=== PATIENT | male | born 1950 | race Caucasian/White ===

== ENCOUNTER 2020-08-07 08:06 | Observation (INO) | payer OTHER, SELFPAY ==
[2020-08-07] VITALS (37 sets, daily range): BP systolic 65–137; BP diastolic 41–76; PULSE 53–78; RESP 11–24; TEMP 36.4–36.9; O2SAT 92–99; BMI 28.8
--- NOTE | 2020-08-07 08:20 | DI.RAD.S_ITS ---
PROCEDURE: XR CHEST 1V INDICATIONS: chest pain TECHNIQUE: One view of the chest was acquired. COMPARISON: [facility], CR, XR CHEST 2VW, 01/28/2017, 17:48. FINDINGS: Surgical changes and devices: None. Lungs and pleura: Left lower lobe infiltrates suspicious for pneumonia. No pleural effusions or pneumothorax. Mediastinum: Mediastinal contours appear normal. Heart size is normal. Bones and chest wall: No suspicious bony lesions. Overlying soft tissues appear unremarkable. IMPRESSION: Left lower lobe pneumonia. Dictated by: Sarah Trevino M.D. on 08/07/2020 at 8:42 Approved by: Sarah Trevino M.D. on 08/07/2020 at 8:43
[2020-08-07 08:35] LABS: Add Manual Diff / Slide Review NO; Basophils Absolute Auto 100 /uL (0-100); Basophils Percent Auto 0.8 % (0-2); Eosinophils Absolute Auto 100 /uL (0-450); Eosinophils Percent Auto 0.8 % (2-4); Hematocrit 44.2 % (41-53); Hemoglobin 14.8 g/dL (13.5-17.5); Lymphocytes Absolute Auto 1600 /uL (1100-4500); Lymphocytes Percent Auto 18.6 % (25-40); Mean Corpuscular HGB Conc 33.5 % (30-36); Mean Corpuscular Volume 86.8 fL (80-100); Monocytes Absolute Auto 1100 /uL (0-900); Neutrophils Absolute Auto 5700 /uL (1500-7000); Neutrophils Percent Auto 66.8 % (50-75); Platelet Count 233 X10^3/uL (150-400); Red Blood Cell Count 5.09 X10^6/uL (4.5-5.9); Red Cell Distribution Width 13.5 % (11.6-14.8); White Blood Cell Count 8.6 X10^3/uL (4.5-11.0)
--- NOTE | 2020-08-07 08:39 | ED.GENADULT ---
HPI - General Adult General Chief complaint: Chest Pain Stated complaint: AFIB/ heart rate reached 170 Time Seen by Provider: 08/07/20 08:08 Source: patient Mode of arrival: Ambulatory Limitations: no limitations History of Present Illness HPI narrative: Patient is a 70-year-old male who at the end of last year around [place] time had an ER visit where he was told that he was in atrial fibrillation. He was given medications in sounds like converted in the emergency department because he was discharged home. He was not started on any medication. Since that time he has seen his primary doctor who started him on a ?blood pressure medicine ?that he also noticed decreased his heart rate. He does not know with this medication is. He has has scheduled appointment with a ldr nurse at the end of this week. He comes to the emergency department today because earlier today he started noticing that his heart rate was beating fast. He was a little lightheaded at the time. He has a home heart rate monitor and states that his heart rate was in the 170s. It had resolved by the time he came to the emergency department. After his heart rate is fast he is noticing that he is having some discomfort afterwards however that has also resolved. He came to the emergency department today and recommendation by his coworkers and also the fact that he has been having chest discomfort after having the fast heart rate. Related Data Home Medications Medication Instructions Recorded Confirmed Aspirin Low Dose 81 mg PO DAILY 08/07/20 08/07/20 diltiazem HCl 120 mg PO DAILY 08/07/20 08/07/20 Review of Systems Constitutional Constitutional: Denies chills and Denies fever(s) Cardiovascular Cardiovascular: Reports chest pain, Reports rapid heart rate, Reports lightheadedness and Denies dyspnea Respiratory Respiratory: Denies cough and Denies dyspnea Gastrointestinal Gastrointestinal: Denies abdominal pain, Denies nausea and Denies vomiting Genitourinary Genitourinary: Denies dysuria Genitourinary: Denies dysuria Musculoskeletal Musculoskeletal: Denies arthralgias and Denies myalgias Integumentary/Breasts Skin/Breast: Denies rash Neurologic Neurologic: Denies behavioral changes Psychiatric Psychiatric: Denies behavioral changes Endocrine Endocrine: Denies flushing Hematologic/Lymphatic On Anticoagulants: No Allergic/Immunologic Allergic/Immunologic: Denies urticaria Patient History Medical History (Updated 08/07/20 @ 15:29 by Emanuel Patricio MD) Atrial fibrillation Hyperlipidemia Social History household members: none Smoking Status: Never smoker alcohol intake: current Smoking Status: Never smoker alcohol intake frequency: 0-2 drinks per day Substance Use Type: does not use Exam Initial Vital Signs Initial Vital Signs: Vital Signs Pulse Rate 73 08/07/20 08:16 Pulse Oximetry 96 08/07/20 08:16 Const General: cooperative and comfortable Limitations: mental status not altered HENMT Head: normal to inspection and normocephalic Eyes General: appearance normal, both eyes and all related structures Chest Chest: No crepitus Resp Effort & Inspection: normal respiratory effort Auscultation: clear to auscultation bilaterally Cardio Rate: regular rate Rhythm: regular rhythm Pulses: radial pulses present GI Inspection: non-distended Skin Lesions: no lesions Rashes: no rashes Neuro General: patient alert and patient awake Cognition: normal cognition Speech: speech normal Extrem General: normal to inspection, capillary refill normal and No edema Psych Appearance: grossly normal and well kempt Scores GCS [place] coma scale eye opening: Spontaneous [place] coma scale verbal response: Orientated [place] coma scale motor response: Obey commands [place] coma scale total score: 15 Course Orders Ordered: ED Orders 08/07/20 10:30 Troponin & CK Cardiac Panel Stat Acetaminophen (Acetaminophen 325 Mg Tablet) 650 mg PO Q6HR PRN PRN Reason: Fever/Mild Pain (1-3) Aspirin (Aspirin Ec 81 Mg Tablet) 81 mg PO DAILY AZEEM Atorvastatin Calcium (Atorvastatin 20 Mg Tablet) 20 mg PO BEDTIME AZEEM Magnesium Hydroxide (Magnesium Hydroxide 30 Ml Udc) 30 ml PO DAILY PRN PRN Reason: Constipation Naloxone HCl (Naloxone 0.4 Mg/Ml Vial) 0.2 mg IV Q2MIN PRN PRN Reason: Opiate Reversal Nitroglycerin (Nitroglycerin 0.4 Mg Sl Tab) 0.4 mg SL [id number] PRN PRN Reason: Chest Pain Last Admin: 08/07/20 10:08 Dose: 0.4 mg Documented by: PASTORA Nitroglycerin (Nitroglycerin 0.4 Mg Sl Tab) 0.4 mg SL [id number] PRN PRN Reason: Chest Pain Discontinued Medications Aspirin (Aspirin 81 Mg Chew Tab) 324 mg PO NOW ONE Stop: 08/07/20 10:51 Last Admin: 08/07/20 11:05 Dose: 324 mg Documented by: PASTORA Vital Signs Vital signs: Vital Signs - 8 hr 08/07/20 10:20 08/07/20 10:25 08/07/20 10:30 Pulse Rate 67 67 69 Respiratory Rate 13 13 14 Blood Pressure 90/57 L 96/62 107/64 Pulse Oximetry 95 95 97 08/07/20 10:35 Pulse Rate 78 Respiratory Rate 20 Blood Pressure 106/66 Pulse Oximetry 94 Medical Decision Making Medical Records Medical records reviewed: Yes I reviewed the patient's medical records. Lab Data Lab results reviewed: Yes I reviewed the patient's lab results. Result diagrams: 08/07/20 08:20 08/07/20 08:20 Labs: Lab Results 08/07/20 08/07/20 08/07/20 Range/Units 08:20 08:20 08:20 WBC 8.6 (4.5-11.0) X10^3/uL RBC 5.09 (4.5-5.9) X10^6/uL Hgb 14.8 (13.5-17.5) g/dL Hct 44.2 (41-53) % MCV 86.8 (80-100) fL MCH 29.0 (26-34) PG MCHC 33.5 (30-36) % RDW 13.5 (11.6-14.8) % Plt Count 233 (150-400) X10^3/uL Neut % (Auto) 66.8 (50-75) % Lymph % (Auto) 18.6 L (25-40) % Ellis % (Auto) 13.0 (3-14) % Eos % (Auto) 0.8 L (2-4) % Baso % (Auto) 0.8 (0-2) % Neut # (Auto) 5700 (6327-0287) /uL Lymph # (Auto) 1600 (7686-6812) /uL Ellis # (Auto) 1100 H (0-900) /uL Eos # (Auto) 100 (0-450) /uL Baso # (Auto) 100 (0-100) /uL Sodium 135 L (137-145) mmol/L Potassium 4.3 (3.4-5.1) mmol/L Chloride 101 (98-107) mmol/L Carbon Dioxide 28 (22-32) mmol/L BUN 28 H (9-20) mg/dL Creatinine 1.19 (0.66-1.25) mg/dL Estimated GFR > 60.0 (>60) mL/min BUN/Creatinine Ratio 23.5 H (6-22) Glucose 116 H (80-110) mg/dL Hemoglobin A1c (4.0-6.0) % Calcium 9.5 (8.4-10.2) mg/dL Total Bilirubin 0.4 (0.2-1.3) mg/dL AST 26 (17-59) IU/L ALT 21 (<50) IU/L Alkaline Phosphatase 76 (38-126) U/L Total Creatine Kinase 49 L (55-170) U/L CK-MB (CK-2) TNP CK-MB (CK-2) Rel Index TNP Troponin I < 0.012 (0.01-0.034) ng/mL NT-Pro-B Natriuret Pep 29 (<125) pg/mL Total Protein 7.6 (6.3-8.2) g/dL Albumin 4.5 (3.5-5.0) g/dL Globulin 3.1 (1.7-4.1) g/dL Albumin/Globulin Ratio 1.5 (1.0-2.8) Triglycerides 176 H (35-150) mg/dL Cholesterol 229 H (140-199) mg/dL LDL Cholesterol, Calc 156 H (<100) mg/dL HDL Cholesterol 38 L (40-60) mg/dL Lipase 79 (23-300) U/L 08/07/20 08/07/20 Range/Units 08:20 10:30 WBC (4.5-11.0) X10^3/uL RBC (4.5-5.9) X10^6/uL Hgb (13.5-17.5) g/dL Hct (41-53) % MCV (80-100) fL MCH (26-34) PG MCHC (30-36) % RDW (11.6-14.8) % Plt Count (150-400) X10^3/uL Neut % (Auto) (50-75) % Lymph % (Auto) (25-40) % Ellis % (Auto) (3-14) % Eos % (Auto) (2-4) % Baso % (Auto) (0-2) % Neut # (Auto) (2323-3743) /uL Lymph # (Auto) (6705-5549) /uL Ellis # (Auto) (0-900) /uL Eos # (Auto) (0-450) /uL Baso # (Auto) (0-100) /uL Sodium (137-145) mmol/L Potassium (3.4-5.1) mmol/L Chloride (98-107) mmol/L Carbon Dioxide (22-32) mmol/L BUN (9-20) mg/dL Creatinine (0.66-1.25) mg/dL Estimated GFR (>60) mL/min BUN/Creatinine Ratio (6-22) Glucose (80-110) mg/dL Hemoglobin A1c 6.3 H (4.0-6.0) % Calcium (8.4-10.2) mg/dL Total Bilirubin (0.2-1.3) mg/dL AST (17-59) IU/L ALT (<50) IU/L Alkaline Phosphatase (38-126) U/L Total Creatine Kinase 42 L (55-170) U/L CK-MB (CK-2) TNP CK-MB (CK-2) Rel Index TNP Troponin I < 0.012 (0.01-0.034) ng/mL NT-Pro-B Natriuret Pep (<125) pg/mL Total Protein (6.3-8.2) g/dL Albumin (3.5-5.0) g/dL Globulin (1.7-4.1) g/dL Albumin/Globulin Ratio (1.0-2.8) Triglycerides (35-150) mg/dL Cholesterol (140-199) mg/dL LDL Cholesterol, Calc (<100) mg/dL HDL Cholesterol (40-60) mg/dL Lipase (23-300) U/L Imaging Data Chest x-ray: Radiologist's Impression: [address] [id number] ReportSigned Patient: James Alamo [facility]#: [id number]: 1950Acct:[id number]/Sex: 70 / MDate of Service: 08/07/20Loc: EDAccession Number: [id number] Procedure: XR chest 1V Ordering Provider: Arvin Rosales D.O. PROCEDURE: XR CHEST 1V INDICATIONS: chest pain TECHNIQUE: One view of the chest was acquired. COMPARISON: [facility], , XR CHEST 2VW, 01/28/2017, 17:48. FINDINGS: Surgical changes and devices: None. Lungs and pleura: Left lower lobe infiltrates suspicious for pneumonia. No pleural effusions or pneumothorax. Mediastinum: Mediastinal contours appear normal. Heart size is normal. Bones and chest wall: No suspicious bony lesions. Overlying soft tissues appear unremarkable. IMPRESSION: Left lower lobe pneumonia. Dictated by: Sarah Trevino M.D. on 08/07/2020 at 8:42 Approved by: Sarah Trevino M.D. on 08/07/2020 at 8:43 ECG Data Attestation: I personally reviewed and interpreted this ECG as follows: Prior ECG tracings: not available for review Interpretation: Sinus rhythm Ventricular rate of 78 Normal axis Normal QRS Normal QTC No ST T wave changes MDM Narrative Medical decision making narrative: Despite the chest x-ray read concerning for pneumonia patient clinically does not have pneumonia. He is afebrile. Not coughing. Is currently not having any chest discomfort. Will hold on treating with any antibiotics. Patient was in sinus rhythm and chest pain-free upon arrival. While he was here in the emergency department waiting for his 2nd troponin he had a return of the chest discomfort. He is given 1 nitro which he states resolved his symptoms but also decreased his blood pressure. He was not having palpitations at the time. He had no further episodes of AFib while being here. Given the chest discomfort, the palpitations in the return of the chest pain and his age I feel admission the hospital for further evaluation treatment is warranted. I discussed the case with Dr. Patricio [facility] who admit for further evaluation. Discussed admission with the patient he expressed understanding and agreement. Discharge Plan Departure Patient Disposition: Home Clinical Impression: Chest pain
[2020-08-07 08:40] LABS: Alanine Aminotransferase 21 IU/L (<50); Albumin 4.5 g/dL (3.5-5.0); Albumin Globulin Ratio 1.5 (1.0-2.8); Alkaline Phosphatase 76 U/L (38-126); Aspartate Aminotransferase 26 IU/L (17-59); BUN Creatinine Ratio 23.5 (6-22); Bilirubin Total 0.4 mg/dL (0.2-1.3); Blood Urea Nitrogen 28 mg/dL (9-20); Calcium 9.5 mg/dL (8.4-10.2); Carbon Dioxide 28 mmol/L (22-32); Chloride 101 mmol/L (98-107); Creatine Kinase 49 U/L (55-170); Estimated Glomerular Filt Rate > 60.0 mL/min (>60); Globulin 3.1 g/dL (1.7-4.1); Glucose 116 mg/dL (80-110); HEMOLYSIS < 15 (0-50); Lipase 79 U/L (23-300); Potassium 4.3 mmol/L (3.4-5.1); Sodium 135 mmol/L (137-145); Total Protein 7.6 g/dL (6.3-8.2)
[2020-08-07 08:52] LABS: NT-proBNP (BNP-Adult 18+) 29 pg/mL (<125); Troponin I < 0.012 ng/mL (0.01-0.034)
[2020-08-07] MEDS: NITROGLYCERIN 0.4 MG SL TAB SL (10:08)
--- NOTE | 2020-08-07 10:23 | PC.NURSE ---
Initial dose of NTG SL precipitated a BP drop to 65/41. Dr Rosales informed, IV bolus 1000 mL started, Pt placed Trendelenberg.
[2020-08-07] MEDS: ASPIRIN 81 MG CHEW TAB 324 MG PO (11:05)
[2020-08-07 11:14] LABS: Creatine Kinase 42 U/L (55-170)
[2020-08-07 11:22] LABS: Troponin I < 0.012 ng/mL (0.01-0.034)
[2020-08-07 12:12] LABS: COVID19 -Nasal RAPID Negative (Negative)
--- NOTE | 2020-08-07 12:38 | PC.ADMIT ---
[facility] Admission Note: Safe hand off from ED, [place] HEDRICK. Patient arrived to unit via wheelchair and safe transfer to bedside. No devices for assistance. Patient VSS. Lung sounds clear in all quadrants. Bowel tones active in all quadrants. Normal heart sounds. NS on telemetry. Patient educated about the use of call light, it is within reach, and bed is low and locked. No bed alarm, patient is a low fall risk. The patient,James Alamo,70 y/o, was given written information regarding hospital policies, unit procedures and contact persons. Patient's smoking status: Never smoker. Vital Signs - 8 hr 08/07/20 08:16 08/07/20 08:17 08/07/20 08:20 Temperature 98.5 F Pulse Rate 73 73 74 Respiratory Rate 16 Blood Pressure 137/76 137/76 Pulse Oximetry 96 97 99 08/07/20 08:28 08/07/20 08:30 08/07/20 08:40 Temperature Pulse Rate 74 77 74 Respiratory Rate 18 24 13 Blood Pressure 129/72 130/75 115/71 Pulse Oximetry 97 99 95 08/07/20 09:00 08/07/20 09:10 08/07/20 09:16 Temperature Pulse Rate 75 74 76 Respiratory Rate 15 12 22 Blood Pressure 117/71 123/71 115/61 Pulse Oximetry 95 95 95 08/07/20 09:20 08/07/20 09:25 08/07/20 09:30 Temperature Pulse Rate 71 73 73 Respiratory Rate 14 21 15 Blood Pressure 107/69 117/69 Pulse Oximetry 95 93 92 08/07/20 09:35 08/07/20 09:40 08/07/20 09:45 Temperature Pulse Rate 72 72 70 Respiratory Rate 14 13 12 Blood Pressure 112/65 Pulse Oximetry 92 93 95 08/07/20 09:50 08/07/20 09:55 08/07/20 10:00 Temperature Pulse Rate 73 72 71 Respiratory Rate 11 L 11 L 12 Blood Pressure 123/70 113/64 Pulse Oximetry 96 97 98 08/07/20 10:05 08/07/20 10:06 08/07/20 10:08 Temperature Pulse Rate 71 71 72 Respiratory Rate 11 L 15 Blood Pressure 114/68 114/68 Pulse Oximetry 97 96 08/07/20 10:10 08/07/20 10:13 08/07/20 10:15 Temperature Pulse Rate 75 69 53 L Respiratory Rate 17 17 18 Blood Pressure 115/69 65/41 L 66/45 L Pulse Oximetry 96 96 97 08/07/20 10:20 08/07/20 10:25 08/07/20 10:30 Temperature Pulse Rate 67 67 69 Respiratory Rate 13 13 14 Blood Pressure 90/57 L 96/62 107/64 Pulse Oximetry 95 95 97 08/07/20 10:35 08/07/20 11:00 08/07/20 11:30 Temperature Pulse Rate 78 62 62 Respiratory Rate 20 11 L 13 Blood Pressure 106/66 Pulse Oximetry 94 98 96 08/07/20 11:40 08/07/20 11:41 08/07/20 11:45 Temperature Pulse Rate 69 71 68 Respiratory Rate 13 20 15 Blood Pressure 113/72 107/66 Pulse Oximetry 97 98 97 08/07/20 12:00 Temperature Pulse Rate 71 Respiratory Rate 20 Blood Pressure 107/66 Pulse Oximetry 95
[2020-08-07 13:43] LABS: Cholesterol 229 mg/dL (140-199); HDL Cholesterol 38 mg/dL (40-60); LDL Cholesterol Calculated 156 mg/dL (<100); Triglycerides 176 mg/dL (35-150)
[2020-08-07 13:49] LABS: Hemoglobin A1C% w Est Avg Glu 6.3 % (4.0-6.0)
--- NOTE | 2020-08-07 15:19 | PM.HP.1 ---
History of Present Illness History of Present Illness Date Patient Seen: 08/07/20 Time Patient Seen: 13:30 Date of Onset of Symptoms: 08/07/20 Chief complaint: AFIB/ heart rate reached 170 Narrative: Patient is a 70-year-old male with history of hyperlipidemia, recently diagnosed paroxysmal atrial fibrillation presented to emergency department with complaints of persistent chest pain. Patient was diagnosed with atrial fibrillation at [place] when he presented to outside ED with elevated heart rate and palpitations. He was sent home from the emergency department after given medication and went back in sinus rhythm. Since then he has had almost daily episodes of elevated heart rate, frequently in the 115-120 range, but several times as high as 160s to 170s. He has also been experiencing mild chest discomfort which seems to come on as his heart rate is slowing back down but can last for a couple of hours. He has not had exertional chest discomfort. He had an echo at [facility] last week which reportedly did not show any LV dysfunction or valvular disease. We have requested report. He was started on diltiazem CD 100 20 mg daily a week ago by PCP. He has cardiology appointment scheduled with Dr. Heath on Friday this week. Patient was on his way to work when developed palpitations with heart rate of on his monitor in the 160s. He also began to feel dizzy and experience substernal chest discomfort which lasted for a couple of hours and was relieved with sublingual nitroglycerin in the ED. this current episode of chest discomfort was more severe, 4 to 5/10 severity, than previous episodes. He was in sinus rhythm in the ED. His EKG showed normal sinus rhythm without ST or T-wave abnormality. Chest x-ray showed possible left lower lung infiltrate but he has not had any fevers, cough, myalgias. His CBC and chemistries were normal, except glucose 116, and troponin was less than 0.012. Patient is admitted for chest pain rule out and further evaluation of atrial fibrillation. Family/social history: No family history of coronary artery disease, stroke or atrial fibrillation. Patient quit smoking about 20 years ago. No significant alcohol use. Patient History Medical History (Updated 08/07/20 @ 15:29 by Emanuel Patricio MD) Atrial fibrillation Hyperlipidemia Family & Social History Social History: household members none Prior Living Arrangements House Safety & Behavioral: Feels Safe in Current Yes Environment Been Physically Hurt or No Threatened By a Person Suicidal Ideation Description None Suicide Plan Description No Plan Tobacco & Substance use: Smoking Status Former smoker alcohol intake current alcohol intake frequency a few times a week Substance Use Type does not use Meds Home Medications and Allergies Home Medications Medication Instructions Recorded Confirmed Type Aspirin Low Dose 81 mg PO DAILY 08/07/20 08/07/20 History diltiazem HCl 120 mg PO DAILY 08/07/20 08/07/20 History Review of Systems Review of Systems ROS: Yes All systems reviewed with the patient and are negative except as otherwise documented Exam Vital Signs (past 8 hours): - 08/07/20 08:16 08/07/20 08:17 08/07/20 08:20 Temperature 98.5 F Pulse Rate 73 73 74 Respiratory Rate 16 Blood Pressure 137/76 137/76 Pulse Oximetry 96 97 99 08/07/20 08:28 08/07/20 08:30 08/07/20 08:40 Temperature Pulse Rate 74 77 74 Respiratory Rate 18 24 13 Blood Pressure 129/72 130/75 115/71 Pulse Oximetry 97 99 95 08/07/20 09:00 08/07/20 09:10 08/07/20 09:16 Temperature Pulse Rate 75 74 76 Respiratory Rate 15 12 22 Blood Pressure 117/71 123/71 115/61 Pulse Oximetry 95 95 95 08/07/20 09:20 08/07/20 09:25 08/07/20 09:30 Temperature Pulse Rate 71 73 73 Respiratory Rate 14 21 15 Blood Pressure 107/69 117/69 Pulse Oximetry 95 93 92 08/07/20 09:35 08/07/20 09:40 08/07/20 09:45 Temperature Pulse Rate 72 72 70 Respiratory Rate 14 13 12 Blood Pressure 112/65 Pulse Oximetry 92 93 95 08/07/20 09:50 08/07/20 09:55 08/07/20 10:00 Temperature Pulse Rate 73 72 71 Respiratory Rate 11 L 11 L 12 Blood Pressure 123/70 113/64 Pulse Oximetry 96 97 98 08/07/20 10:05 08/07/20 10:06 08/07/20 10:08 Temperature Pulse Rate 71 71 72 Respiratory Rate 11 L 15 Blood Pressure 114/68 114/68 Pulse Oximetry 97 96 08/07/20 10:10 08/07/20 10:13 08/07/20 10:15 Temperature Pulse Rate 75 69 53 L Respiratory Rate 17 17 18 Blood Pressure 115/69 65/41 L 66/45 L Pulse Oximetry 96 96 97 08/07/20 10:20 08/07/20 10:25 08/07/20 10:30 Temperature Pulse Rate 67 67 69 Respiratory Rate 13 13 14 Blood Pressure 90/57 L 96/62 107/64 Pulse Oximetry 95 95 97 08/07/20 10:35 08/07/20 11:00 08/07/20 11:30 Temperature Pulse Rate 78 62 62 Respiratory Rate 20 11 L 13 Blood Pressure 106/66 Pulse Oximetry 94 98 96 08/07/20 11:40 08/07/20 11:41 08/07/20 11:45 Temperature Pulse Rate 69 71 68 Respiratory Rate 13 20 15 Blood Pressure 113/72 107/66 Pulse Oximetry 97 98 97 08/07/20 12:00 08/07/20 12:10 Temperature 97.6 F Pulse Rate 71 72 Respiratory Rate 20 18 Blood Pressure 107/66 116/71 Pulse Oximetry 95 97 Oxygen Delivery Method Room Air Oxygen Flow Rate 0 Narrative Exam Narrative: General: He is well-developed well-nourished male in no acute distress HEENT: Pupils equal, anicteric Neck: No lymphadenopathy Lungs: Clear to auscultation Heart: Normal S1 and S2, regular rate and rhythm, no murmur Abdomen: Obese, soft, nontender, no HSM Extremities: No edema Neurological: Affect normal, speech normal, nonfocal Objective Labs Result Diagrams: 08/07/20 08:20 08/07/20 08:20 Labs: Laboratory Results - last 24 hr 08/07/20 08/07/20 08/07/20 08:20 08:20 08:20 WBC 8.6 RBC 5.09 Hgb 14.8 Hct 44.2 MCV 86.8 MCH 29.0 MCHC 33.5 RDW 13.5 Plt Count 233 Neut % (Auto) 66.8 Lymph % (Auto) 18.6 L Brooks % (Auto) 13.0 Eos % (Auto) 0.8 L Baso % (Auto) 0.8 Neut # (Auto) 5700 Lymph # (Auto) 1600 Brooks # (Auto) 1100 H Eos # (Auto) 100 Baso # (Auto) 100 Sodium 135 L Potassium 4.3 Chloride 101 Carbon Dioxide 28 BUN 28 H Creatinine 1.19 Estimated GFR > 60.0 BUN/Creatinine Ratio 23.5 H Glucose 116 H Hemoglobin A1c Calcium 9.5 Total Bilirubin 0.4 AST 26 ALT 21 Alkaline Phosphatase 76 Total Creatine Kinase 49 L CK-MB (CK-2) TNP CK-MB (CK-2) Rel Index TNP Troponin I < 0.012 NT-Pro-B Natriuret Pep 29 Total Protein 7.6 Albumin 4.5 Globulin 3.1 Albumin/Globulin Ratio 1.5 Triglycerides 176 H Cholesterol 229 H LDL Cholesterol, Calc 156 H HDL Cholesterol 38 L Lipase 79 SARS-CoV-2 (PCR) 08/07/20 08/07/20 08/07/20 08:20 10:30 11:45 WBC RBC Hgb Hct MCV MCH MCHC RDW Plt Count Neut % (Auto) Lymph % (Auto) Brooks % (Auto) Eos % (Auto) Baso % (Auto) Neut # (Auto) Lymph # (Auto) Brooks # (Auto) Eos # (Auto) Baso # (Auto) Sodium Potassium Chloride Carbon Dioxide BUN Creatinine Estimated GFR BUN/Creatinine Ratio Glucose Hemoglobin A1c 6.3 H Calcium Total Bilirubin AST ALT Alkaline Phosphatase Total Creatine Kinase 42 L CK-MB (CK-2) TNP CK-MB (CK-2) Rel Index TNP Troponin I < 0.012 NT-Pro-B Natriuret Pep Total Protein Albumin Globulin Albumin/Globulin Ratio Triglycerides Cholesterol LDL Cholesterol, Calc HDL Cholesterol Lipase SARS-CoV-2 (PCR) Negative Assessment & Plan Assessment & Plan narrative: 1. Chest pain -patient with recurrent prolonged episodes of chest discomfort which seems to be brought on by occurrences of paroxysmal atrial fibrillation, chest discomfort relieved by nitroglycerin in the ED -normal admit EKG and troponin -schedule myocardial perfusion stress test -serial troponins -telemetry monitoring -obtain outside echo report from last week -total cholesterol 229, LDL 156, HDL 38, triglycerides 176 not on therapy -aspirin 81 mg q.d., atorvastatin 20 mg HS 2. 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 Pre diabetes -glucose 116 fasting, hemoglobin A1c 6.3 consistent with pre diabetes which is a known diagnosis -continue dietary modification 4. Possible obstructive sleep apnea -patient with central obesity and short floppy neck concerning for possible undiagnosed sleep apnea, he lives alone and has not had witnessed snoring or apnea -advised to have PCP refer for outpatient sleep study especially as sleep apnea may be risk factor for AFib Quality VTE Deep Vein Thrombosis/Pulmonary Embolism Present on Admission: No
[2020-08-07 16:56] LABS: Troponin I < 0.012 ng/mL (0.01-0.034)
--- NOTE | 2020-08-07 18:17 | PC.NURSE ---
Addendum entered by Sylvia Mariee R.N. 08/07/20 21:56: Uneventful evening. denies discomfort. NPO at MI for stress test in am. HL intact/patent. Tele NSR as per ICU staff. Call light w/in reach, pt calls appropriately for needs. . Continue w/plan of care. Original Note: Pt went for stress test early in shift. Denies discomfort @ this time SpO2 98% RA Tele shows NSR per ICU staff. HL RAC intact/patent. Call light w/in reach, pt calls appropriately for needs Independent in room
[2020-08-07] MEDS: ATORVASTATIN 20 MG TABLET PO (20:04)
[2020-08-07] MEDS: SODIUM CHLORIDE 0.9% FLUSH 10 ML IV (20:06)
[2020-08-08 00:49] VITALS: BP 96/60; PULSE 83; RESP 12; TEMP 36.6; O2SAT 97
--- NOTE | 2020-08-08 01:37 | PC.NURSE ---
Addendum entered by Silvia Yates R.N. 08/08/20 06:25: States he was able to sleep fairly well. This morning states chest feels like he have a lump with severity of 0.5 but states it is not really pain. Denies SOB. Up ambulating in [place]. Original Note: 0041 Patient is alert and oriented. Breath sounds CTA with RA sat of 97%. HRR with telemetry reading of SR. Denies SOB or chest pain at present time. Denies nausea. BT present and abdomen is soft. Denies dysuria, frequency or urgency with urination. Independent with mobility. Denies pain. Refusing SCD's so reminded to ankle wave when awake. Fall risk score is low.
[2020-08-08 04:54] VITALS: BP 117/64; PULSE 72; RESP 12; TEMP 36.4; O2SAT 98
[2020-08-08 07:43] VITALS: BP 116/57; PULSE 78; RESP 16; TEMP 36.7; O2SAT 98
[2020-08-08] MEDS: ASPIRIN EC 81 MG TABLET PO (08:44)
[2020-08-08 08:45] VITALS: BP 116/57; PULSE 78
[2020-08-08] MEDS: NITROGLYCERIN 0.4 MG SL TAB SL (08:45)
[2020-08-08] MEDS: SODIUM CHLORIDE 0.9% FLUSH 10 ML IV (08:46)
--- NOTE | 2020-08-08 08:46 | PC.NURSE ---
Addendum entered by Lizbeth Soriano R.N. 08/08/20 10:43: Sublingual nitro helped chest pain, VSS were monitored. Original Note: Patient complains of chest pain that is different than yesterday the way he describes it is that it is moving around and uncomfortable. VS 116/57 HR 78, chest pain 07/16. Patient reports feeling off. Dr. Patricio notified. Stat EKG ordered and sublingual nitro given.
[2020-08-08] MEDS: ONDANSETRON 4 MG/2 ML INJ IV (08:54)
[2020-08-08 12:09] VITALS: BP 129/75; PULSE 91; RESP 16; TEMP 36.9; O2SAT 96
--- NOTE | 2020-08-08 13:16 | PM.TREADMILL ---
Cardiac Stress Test Report Referral & Results Date Patient Seen: 08/08/20 Time Patient Seen: 13:16 Requesting provider: Emanuel Patricio Indication: atrial fibrillation Rest ECG: sinus rhythm Procedure Note: Standard Cortes protocol; 6:10, 7 METS Slightly reduced exercise capacity, OLLIE 9% Normal hemodynamic response to exercise No chest pain or anginal symptoms No significant ST changes at peak exercise No ectopy or atrial fibrillation during exercise Impression: Normal exercise stress test Please note: Actual ECG tracings can be found in the PACS system.
--- NOTE | 2020-08-08 13:28 | CM.DANOTE ---
Addendum entered by Marcy Moser LPN 08/08/20 13:42: Went to room now to check in with pt. FLORIDALMA Alegre confirms that he is off the unit for the stress test. Expected to return shortly and will plan to check in with him. Sis does confirm that he has no contacts that he wishes to provide for his records and no advanced directives. He is currently employed. Addendum entered by Marcy Moser LPN 08/08/20 13:35: Do also see that pt also has Medicare A only. Admission status: currently OBS/confirmed by UR FLORIDALMA Brothers. Original Note: Discharge Planning/Care Management DCP: assessment: case received, EMR reviewed. Discussed in Team Rounds. Dr Patricio stated that pt would likely be able to d/c home later this evening after results of stress test. Pt is a 70 year old male who admitted to care of hospitalist team. PCP: Solitario Nazario Chef Concierge: Dr. Heath: pt has an appt set up for this Monday 08/14. Pt with recent dx of A-Fib and is having some ongoing chest pain today. Payer: [facility] Discharge Assessment Start: 08/08/20 13:27 Freq: Status: Active Protocol: Document 08/08/20 13:27 ITV (Rec: 08/08/20 13:28 ITV [id number]) Discharge Planning Assessment Advance Directives? No History Provided By Medical Record Comment not at [facility] Prior Living Arrangements House Household Members none Type of transpotration used prior to Drives own vehicle admit Independent with ADL's Yes Is patient alert and oriented? Yes
--- NOTE | 2020-08-08 14:55 | CM.DPC ---
DCP: continued. Met with pt as planned and introduced self and role. Pt confirms that his coworkers will be bringing his truck to the hospital later this afternoon in anticipation of d/c.
[2020-08-08 15:24] VITALS: BP 118/68; PULSE 99; RESP 18; TEMP 36.4; O2SAT 95
--- NOTE | 2020-08-08 16:52 | PM.DS.1 ---
History of Present Illness History of Present Illness Chief complaint: AFIB/ heart rate reached 170 Narrative: Patient is a 70-year-old male with history of hyperlipidemia, recently diagnosed paroxysmal atrial fibrillation presented to emergency department with complaints of persistent chest pain. Patient was diagnosed with atrial fibrillation at [place] when he presented to outside ED with elevated heart rate and palpitations. He was sent home from the emergency department after given medication and went back in sinus rhythm. Since then he has had almost daily episodes of elevated heart rate, frequently in the 115-120 range, but several times as high as 160s to 170s. He has also been experiencing mild chest discomfort which seems to come on as his heart rate is slowing back down but can last for a couple of hours. He has not had exertional chest discomfort. He had an echo at [facility] last week which reportedly did not show any LV dysfunction or valvular disease. We have requested report. He was started on diltiazem CD 100 20 mg daily a week ago by PCP. He has cardiology appointment scheduled with Dr. Heath on Friday this week. Patient was on his way to work when developed palpitations with heart rate of on his monitor in the 160s. He also began to feel dizzy and experience substernal chest discomfort which lasted for a couple of hours and was relieved with sublingual nitroglycerin in the ED. this current episode of chest discomfort was more severe, 4 to 5/10 severity, than previous episodes. He was in sinus rhythm in the ED. His EKG showed normal sinus rhythm without ST or T-wave abnormality. Chest x-ray showed possible left lower lung infiltrate but he has not had any fevers, cough, myalgias. His CBC and chemistries were normal, except glucose 116, and troponin was less than 0.012. Patient is admitted for chest pain rule out and further evaluation of atrial fibrillation. Family/social history: No family history of coronary artery disease, stroke or atrial fibrillation. Patient quit smoking about 20 years ago. No significant alcohol use. Discharge Providers Provider Date of admission: 08/07/20 10:53 Discharge Date: 08/08/20 Primary care physician: Solitario Nazario MD Discharge provider: Emanuel Patricio MD Summary Hospital Course Discharge Diagnosis: 1. Chest pain 2. History of paroxysmal atrial fibrillation Myocardial perfusion stress test: No reversible ischemia on perfusion images. Standard Cortes protocol; 6:10, 7 METS Slightly reduced exercise capacity, OLLIE 9% Normal hemodynamic response to exercise No chest pain or anginal symptoms No significant ST changes at peak exercise No ectopy or atrial fibrillation during exercise Impression: Normal exercise stress test Patient was admitted for chest pain workup. He ruled out with cardiac enzymes and had no ischemic changes on EKG. He had no atrial fibrillation episodes on telemetry. His myocardial perfusion stress test is considered low risk. He had recent outside echo which reportedly did not show anything significant. He does seem to have excessive sinus response to activity with noting his heart rate was up to around 115 with just walking around his room. We continued him on his aspirin and diltiazem as he has cardiology appointment coming up in a few days with Dr. Heath. Patient may want to have outpatient evaluation for sleep apnea. He lives by himself and unable to endorse snoring or apnea. Exam Vital Signs (past 8 hours): - 08/08/20 12:09 08/08/20 15:24 Temperature 98.5 F 97.6 F Pulse Rate 91 H 99 H Respiratory Rate 16 18 Blood Pressure 129/75 118/68 Pulse Oximetry 96 95 Oxygen Delivery Method Room Air Oxygen Flow Rate 0 Objective Labs Result Diagrams: 08/07/20 08:20 08/07/20 08:20 Labs: Laboratory Results - last 24 hr 08/07/20 16:12 Troponin I < 0.012 [facility] Medical History (Updated 08/07/20 @ 15:29 by Emanuel Patricio MD) Atrial fibrillation Hyperlipidemia Social History household members: none Smoking Status: Never smoker alcohol intake: current Discharge Plan Discharge Plan Patient Disposition: Home Discharge orders & Medications Prescriptions: Continued diltiazem HCl 120 mg capsule,extended release 24hr 120 mg PO DAILY RF: 0 Aspirin Low Dose 81 mg 81 mg PO DAILY RF: 0 Follow up/Referrals: Ziggy Heath MD [Non-Staff] - 08/11/20 Solitario Nazario MD [Primary Care Provider] - Diet/Activity/Treatments Diet: Regular Discharge Data Primary Care Provider: Solitario Nazario Attending Provider: Emanuel Patricio VTE Deep Vein Thrombosis/Pulmonary Embolism Present on Admission: No
--- NOTE | 2020-08-08 17:24 | PC.NURSE ---
Discharge Note Patient A&O, VVS, RA. No complaints of chest pain or shortness of breath. Discharge information given and reviewed with patient, no questions or concerns. Tele/PIV discontinued. Belongings packed and given to patient. Patient taken down by MOTORCYCLE SUBASSEMBLER to ED to POV.
--- NOTE | 2020-08-08 17:42 | DI.NM.S_ITS ---
DATE OF SERVICE: 08/08/2020 PROCEDURE: Exercise perfusion study. INDICATION: Chest pain with underlying hypertension, hyperlipidemia, paroxysmal AFib. RADIOPHARMACEUTICAL: 27.0 millicurie of technetium-99m Myoview IV was injected at stress and 20.2 millicurie technetium-99m Myoview IV was injected at rest. CARDIAC STRESS: The patient underwent exercise perfusion study under the supervision of an attending staff. The patient walked on Cortes protocol for 6 minutes and 10 seconds, achieved 110 percent of target heart rate with normal blood pressure response. The patient achieved 7 METs of workload and functional aerobic impairment positive 9 percent. No chest pain. Baseline EKG revealed sinus rhythm. During stress, no convincing ischemic changes seen. No significant arrhythmias seen. RAW DATA: There is increased subdiaphragmatic activity. GATED STUDY: Stress LV ejection fraction 70 percent without any obvious wall motion abnormalities. Resting end-diastolic volume 74 mL. TID ratio 0.89, which is within normal limits. Lung/heart ratio 0.37, which is within normal limits. MYOCARDIAL PERFUSION: Stress supine, resting supine and stress prone images were compared to each other. Stress supine images revealed minimally decreased perfusion of the anterior apex, which got resolved during prone images, suggestive of tissue attenuation artifact. No convincing ischemia or infarction pattern seen. On resting study, there was minimally decreased perfusion off distal inferior lateral wall, which also got resolved during prone images. CONCLUSION: I will call this study a normal myocardial perfusion study with evidence of tissue attenuation artifact, which got resolved during prone images. Diminished exercise tolerance. Preserved left ventricular function. No significant arrhythmias. Overall, this is a low-risk exercise perfusion study. James Alamo - ABHIJEET/ольга/woo doc#: [id number]/job#: [id number] dd: 08/08/2020 16:45:00 dt: 08/08/2020 17:17:00 DICTATING MD/COPIES TO: Deacon Tobias MD COPIES MNE: ELLEN;
== END 2020-08-08 17:15 | disposition home or self-care (01) ==
LOC: ED 10:50 → AC 10:55
PROVIDERS: Admitting Provider Internal Medicine; Emergency Provider Emergency Medicine; PCP Family Medicine; Referring Provider Emergency Medicine; Visit Provider Internal Medicine
DX: R07.9 Chest pain, unspecified (principal); I48.0 Paroxysmal atrial fibrillation; E78.5 Hyperlipidemia, unspecified; R73.03 Prediabetes; Z20.822 Contact with and (suspected) exposure to COVID-19
CPT/HCPCS: 36415; 71045; 78452; 80053; 80061; 82550; 83036; 83690; 83880; 84484; 85025; 87635; 93005; 93017; 96374; 99283; 99284; C9803; G0378; A9502; J2405

== ENCOUNTER → 2020-12-12 16:56 | Outpatient (CLI) | payer OTHER, SELFPAY ==
[2020-08-07 12:09] VITALS: BMI 28.8
--- NOTE | 2020-12-12 16:59 | DI.MRI.S_ITS ---
PROCEDURE: MR LUMBAR SPINE WO CON INDICATIONS: Low back pain TECHNIQUE: Noncontrast sagittal T1 spin echo and T2 fast echo, sagittal STIR, axial T1 and T2 fast spin echo through the lumbar spine. In cases with scoliosis, additional coronal T2 fast spin echo may be performed. COMPARISON: [facility], RG, XR L-SPINE 2-3V, 06/27/2020, 16:51. FINDINGS: Image quality: Excellent. Alignment and Curvature: Trace degenerative retrolisthesis of L5 on S1. There is otherwise normal bony alignment. Bone Marrow: Marrow is of normal overall signal. No acute vertebral body compression fractures. Spinal Cord: Conus medullaris terminates at the L1-L2 level. Visualized cord demonstrates normal signal and size. Paraspinous Soft Tissues: No paravertebral masses. T12-L1: No canal stenosis or foraminal stenosis. L1-L2: No canal stenosis or foraminal stenosis. L2-L3: Mild disc bulge. Facet and ligament hypertrophy. Mild canal stenosis. Mild bilateral foraminal stenosis. L3-L4: Short pedicles. Diffuse disc bulge, eccentric to the left. Facet and ligament hypertrophy. Moderate canal stenosis. Moderate bilateral foraminal stenosis with mild flattening deformity on the exiting bilateral L3 nerve root sleeves. Far left lateral disc protrusion abuts the left L3 nerve root far laterally. L4-L5: Short pedicles. Diffuse disc bulge. Facet and ligament hypertrophy. Moderate canal stenosis. Bnme-kf-mnymjdxy right foraminal narrowing and mild left foraminal narrowing. L5-S1: Severe chronic disc height loss. Mild posterior disc protrusion which abuts the bilateral S1 nerve roots in the lateral recesses. Mild canal stenosis. Bilateral facet hypertrophy. Moderate right foraminal narrowing with mild flattening deformity on the exiting right L5 nerve root. Mild to moderate left foraminal narrowing. IMPRESSION: 1. Multilevel canal stenosis is mild at L2-L3, moderate at L3-L4, moderate at L4-L5, and mild at L5-S1. 2. Multilevel facet arthropathy. 3. Multilevel foraminal narrowing as described above. 4. At L3-L4, in addition to moderate left foraminal narrowing, there is a far left lateral disc protrusion which abuts the left L3 nerve root far laterally. Dictated by: Wesley Montoya M.D. on 12/12/2020 at 17:48 Approved by: Wesley Monotya M.D. on 12/12/2020 at 17:53
== END ==
PROVIDERS: PCP Family Medicine; Referring Provider Physical Medicine & Rehabilitation; Visit Provider Physical Medicine & Rehabilitation
DX: M47.816 Spondylosis without myelopathy or radiculopathy, lumbar region (principal); M51.27 Other intervertebral disc displacement, lumbosacral region; M48.061 Spinal stenosis, lumbar region without neurogenic claudication
CPT/HCPCS: 72148

== ENCOUNTER 2021-01-25 15:05 | Outpatient (CLI) | payer OTHER, SELFPAY ==
[2020-08-07 12:09] VITALS: BMI 28.8
[2021-01-25] VITALS (9 sets, daily range): BP systolic 102–119; BP diastolic 56–62; PULSE 59–63; RESP 12–21; TEMP 36.3; O2SAT 94–98
--- NOTE | 2021-01-25 15:08 | DI.RAD.S_ITS ---
PROCEDURE: PAIN L/S TRANSFORAM INJECT IVETTE COMPARISON: [facility], MR, MR LUMBAR SPINE WO CON, 12/12/2020, 17:05. INDICATIONS: SPONDYLOSIS FINDINGS: 6 intraoperative fluoroscopy images demonstrate needle placement at L3-L4 level. IMPRESSION: Fluoroscopy for pain management. Dictated by: Sarah Trevino M.D. on 01/25/2021 at 17:04 Approved by: Sarah Trevino M.D. on 01/25/2021 at 17:05
[2021-01-25] MEDS: fentaNYL 100 MCG/2 ML INJ 50 MCG IV (16:05)
[2021-01-25] MEDS: MIDAZOLAM 5 MG/5 ML VIAL IV (16:10)
[2021-01-25] MEDS: BUPIVACAINE 0.25% (PF) VIAL 2 ML INJ (16:15)
[2021-01-25] MEDS: IOPAMIDOL 15 ML VIAL 3 ML INJ (16:15)
[2021-01-25] MEDS: DEXAMETHASONE 10 MG/ML VIAL 20 MG INJ (16:16)
[2021-01-25] MEDS: BETAMETHASONE 30 MG/5 ML MDV 12 MG INJ (16:16)
--- NOTE | 2021-01-25 16:24 | PM.PROC.IR.1 ---
Date/Time/Diagnoses Date of procedure: 01/25/21 Time of procedure: 16:24 Pre-procedure diagnosis: 1. FORAMINAL STENOSIS WITH LE SYMPTOMS Post-procedure diagnosis: same Procedure Notes Procedure: 1. FLUOROSCOPICALLY GUIDED CONTRAST CONTROLLED TRANSFORAMINAL EPIDURAL STEROID INJECTION - BILATERAL L3/4 TFESI Indications: James is referred by Dr. Nazario for treatment of Foraminal Stenosis with bilateral LE Symptoms Physician: Balwinder Coreas Total Fluoroscopy time (seconds): 15 Total sedation minutes: 11 Complications: none Procedure in detail & Post-procedure care: FINDINGS Foraminal Nerve Root Compression secondary to disc disease and facet hypertrophy DESCRIPTION OF PROCEDURE Following review of allergy and review of potential side effects and complications, including, but not necessarily limited to, infection, allergic reaction, local tissue breakdown, stroke, temporary or permanent nerve injury, paralysis, and possible , the patient indicated that the patient understood and agreed to proceed. An informed consent document was signed by the patient, witnessed by a nurse, and placed in the patient's chart. Additionally, other treatment options including medications, modalities, and physical therapy were reviewed with the patient. After review of previous anaesthesic history and IV conscious sedation the patient was deemed safe to proceed with today?s procedure with IV conscious sedation as ASA class II designation. Safety time-out was performed to confirm patient ID, procedure to be performed and site of procedure. IV sedation was accomplished with a combination of 3mg of Versed and 50mcg of Fentanyl was administered by the RN after DO order, titrated to patient comfort during the course of the procedure while the patient remained responsive to all verbal commands In the prone position following sterile prep and drape of the lumbar region, the right L3/4 posterior neuroforamen was identified fluoroscopically. The skin was anesthetized via a 25-gauge 1.5-inch needle with 1% lidocaine solution. At this point, a 25-gauge 3.5-inch spinal needle was atraumatically introduced and advanced under fluoroscopic guidance through the posterior right L3/4 neuroforamen to approximately the anterior aspect of the canal. Depth was confirmed on lateral view. Following negative aspiration, injection of approximately 1.5cc of Isovue 200 under live fluoroscopy in the AP view confirmed excellent flow along the nerve root, into the epidural space without vascular or intrathecal uptake observed Radiological data, including multiple fluoroscopic views of the lumbosacral spine, reveal a spinal needle at the right L3/4 posterior neuroforamen. Subsequent views show flow of contrast material flowing superiorly and inferiorly along the nerve root confirming epidural flow. Subsequently, a test dose of 1.5cc of 1% lidocaine solution was administered and patient was observed for two minutes for signs or symptoms of complications, including abdominal pain, shortness of breath, bilateral upper or lower extremity weakness, nausea and vomiting, prior to steroid injection. At this point, a total of 3cc or 20mg of dexamethasone and 6mg betamethasone was injected without incident. Attention was then refocused to the left L3/4 level where the identical procedure was replicated. The procedure tolerated the procedure well without signs or symptoms of complications prior to transfer to the recovery area continued monitoring without incident. The patient was then transferred to the recovery area where they were observed for an appropriate time after the injection. The patient reported a VAS score of 7 prior to the procedure and a post-procedure VAS of 0. POST OP INSTRUCTIONS The patient was provided a Pain Log to continue to record their response to the target-specific procedure prior to follow-up visit with their referring physician. Additionally, specific post-injection care instructions and a contact number to our office were provided if concerns arise regarding possible complications associated with the procedure are suspected.
== END 2021-01-25 16:49 | disposition home or self-care (01) ==
PROVIDERS: PCP Family Medicine; Referring Provider Physical Medicine & Rehabilitation; Visit Provider Physical Medicine & Rehabilitation
DX: M48.061 Spinal stenosis, lumbar region without neurogenic claudication (principal); M51.16 Intervertebral disc disorders with radiculopathy, lumbar region
CPT/HCPCS: 64483; 99152; J0702; J1100; J2250; J3010

== ENCOUNTER 2023-12-10 08:28 | Inpatient (IN) | payer OTHER, MEDICARE, SELFPAY ==
[2023-11-19 12:09] VITALS: BMI 28.8
[2023-12-03 13:55] VITALS: BMI 29.5
[2023-12-10] VITALS (12 sets, daily range): BP systolic 92–127; BP diastolic 53–76; PULSE 72–88; RESP 12–17; TEMP 35.7–36.8; O2SAT 92–99; BMI 29.5
--- NOTE | 2023-12-10 | DI.RAD.S_ITS ---
PROCEDURE: XR LUMBAR SPINE 2-3V INDICATIONS: L4-5 TLIF TECHNIQUE: 2 views of the lumbar spine were acquired. COMPARISON: [facility], , MR LUMBAR SPINE WITHOUT CONTRAST, 11/03/2023, 16:47. [facility], CR, XR LUMBAR SPINE 2 OR 3 VIEWS, 10/09/2023, 9:31. FINDINGS: Intraoperative images are present demonstrating posterior fusion at L4-5 with intervertebral spacer. There is good anatomic alignment. Foraminal narrowing is present at L5-S1. IMPRESSION: Intraoperative L4-5 posterior fusion. Dictated by: Beatrice Sutton M.D. on 12/10/2023 at 17:14 Approved by: Beatrice Sutton M.D. on 12/10/2023 at 17:14
[2023-12-10] MEDS: LACTATED RINGERS 1,000 ML 42 ML IV (09:44)
--- NOTE | 2023-12-10 09:51 | PM.PREOP ---
Pre-operative Note Interval Note History & Physical reviewed/Exam performed by Physician: Yes Changes to H&P: No
[2023-12-10] MEDS: CEFAZOLIN 2 GM/100 ML PREMIX 100 ML IV ×2 (10:42→18:47)
[2023-12-10] MEDS: BUPIVACAINE 0.25% (PF) 60 ML, EPINEPHrine 0.15 MG INJ (10:53)
--- NOTE | 2023-12-10 10:56 | SUR.OPER ---
Prone on spine table, head in foam head support, padded chest and pelvic supports, gel pad at knees, lower legs supported by pillows; nipples, genitalia and toes free of pressure, arms secured on foam padded arm boards at <90 degrees abduction. Tape over blanket at thigh secured to table.
[2023-12-10] MEDS: BUPIVACAINE LIPOSOME 266 MG/20 ML VIAL INJ (11:14)
--- NOTE | 2023-12-10 12:57 | PM.OP.1 ---
Operative Date/Time/Diagnoses Date of procedure: 12/10/23 Time of procedure: 10:30 Pre-op diagnosis: 1. L4-5 spinal stenosis with neurogenic claudication 2. L4-5 central disc herniation with bilateral lateral recess stenosis Post-op diagnosis: same Procedure & Clinicians Procedure: 1. L4-5 Postero-lateral and posterior interbody fusion 2. L4-5 interbody cage placement. 3. L4-5 decompressive laminectomy with bilateral facetecomies 4. L4-5 Posterior non-segmental instrumentation 5. [place] of bone marrow from iliac crest 6. Utilization of microsurgical technique and operating microscope Same procedure as scheduled: Yes Indications: Patient has been having chronic back pain and worsening lumbar radiculopathy and symptoms of neurogenic claudication. Patient has MRI showing large L4-5 central disc herniation with severe central and bilateral recess stenosis correlating with his symptoms. Patient failed multiple conservative management with worsening pain weakness and numbness in his lower extremity. Patient has been having difficulty performing activity of daily living. After discussing risks benefits of treatment options, patient elected proceed with surgery. Surgeon: Rachel Steele Preassembler Printed Circuit Board: Chaya Collins Click Yes if Unassisted: No Anesthesia Type: General Operative Notes Closure Type: primary Specimen(s): none sent Prosthetic devices, grafts, tissues, transplants, or devices: Globus revolve screws, Rise cage Estimated Blood Loss (mL): 50 Blood products transfused: none Procedure in detail: Patient was seen in the preoperative area. Risks and benefits of the surgery was discussed with the patient. Informed consent was obtained from the patient and placed in the chart. Surgical site was marked. Patient was taken to the operative room. General anesthesia was administered. Prophylactic antibiotic was given to the patient less than 30 min before the incision was made. Patient was placed into a prone position on the Fili table. Patient's back was then prepped and draped in the sterile fashion. Time-out was performed at this time. Using AP and lateral C-arm imaging the interval between L4-5 was identified and marked on patient's back. A 2 inch incision 2 in from midline was made on the left side first. The fascia was incised in line with skin incision. Globus MARS retractors was placed inside the incision and docked onto the L4 lamina. Using microsurgical technique and operating microscope, a L4 laminectomy and L4-5 facetectomy was performed using a Kerrison rongeur. The laminectomy and facetectomy was performed in order to decompress patient's cauda equina as well as the nerve roots exiting at the L4-5 level. The disc space at L4-5 was identified. And a total diskectomy was performed at L4-5 level. Patient was found to have multiple fragments of central disc extrusion further contributing to severe central stenosis along with ligamentum of flavum hypertrophy. The endplates were decorticated using a rasp and shaver. The total diskectomy and decortication was performed at L4-5 level in order to to accomplish a L4-5 fusion. The local bone from the laminectomy and facetectomy was saved for local bone grafting. After the total diskectomy and decortication was completed, Viacel bone graft material was combined with local bone that was harvested earlier. At this time, a separate skin is incision was made over the iliac crest. A Jamshidi needle was inserted into the iliac crest through a separate skin incision. 5 cc of bone marrow aspiration was obtained through the separate skin incision using a Jamshidi needle from the iliac crest. The bone marrow aspiration was combined with local bone and the Viacel bone grafting material. The bone grafting material was placed into the L4-5 interbody space along with a expandable cage. The cage was expanded to its maximum height using the torque limiting screwdriver. At this time a mirror image incision was made on the right side. The fascia was incised in line with the skin incision. Globus MARS retractor was inserted and docked onto the L4-5 posterolateral gutter. Using the power drill, posterior-lateral decortication was performed at L4-5 level until bleeding cortical bone was identified. The remaining bone grafting material was placed into the L4-5 posterior lateral gutter he order to accomplish posterolateral fusion at the L4-5 level. Using the double C-arm technique, pedicle screws were placed into the L4-5 pedicles bilaterally. This was done by placing the Jamshidi needle into the pedicles, then placing the guidewires over the Jamshidi needle, and finally placing the cannulated screws over the guidewires bilaterally. After the pedicle screws were placed, 2 titanium rods was locked into the heads of the pedicle screws using locking caps and torque limiting screwdriver. After all the hardware was placed, and confirmed with AP and lateral C-arm imaging, the wound was then irrigated with sterile normal saline and packed with Ray-Hugo gauze for 3 min to accomplish hemostasis. After the gauze was removed the deep fascia was closed with #1 Vicryl suture. The subcutaneous layer was closed with 2-0 Vicryl. The skin was closed with skin oz. Patient tolerated the procedure well. There were no complications. The Operation could not have been safely performed without compromising the technical result or length of the procedure, without the assistance of a skilled surgical garment assembler. The surgical garment assembler was medically necessary for proper positioning, retraction and manipulation of instruments, proper exposure, surgical preparation, and manipulation of tissue. Neuro monitoring was utilized throughout the entire case. The signal for the neuro monitoring was stable throughout entire procedure without disturbance. Complications: none Post-operative Condition: stable Disposition: PACU Plan for aftercare: Admit to inpatient hospital
[2023-12-10] MEDS: LACTATED RINGERS 1,000 ML 125 ML IV ×2 (14:12→23:06)
--- NOTE | 2023-12-10 14:33 | PT.IIE ---
Current Diagnoses Spinal stenosis, lumbar region without neurogenic claudication (12/10/23) Spinal stenosis, lumbar region with neurogenic claudication (12/10/23) Surgery Performed Operation Date: 12/10/23 10:15 Actual Procedures p L4-5 TRANSFORAMINAL LUMBAR INTERBODY FUSION - Rachel Steele MD Surgical History (Last Updated 12/03/23 @ 14:20 by Diana Todd RN) H/O hand surgery H/O vasectomy History of nasal surgery Hx of left inguinal hernia repair Hx of right inguinal hernia repair Hx of tonsillectomy Medical History (Last Updated 12/03/23 @ 15:03 by Diana Todd RN) Atrial fibrillation Waters's esophagus BCC (basal cell carcinoma) Depression Facet arthropathy, lumbar Herniated nucleus pulposus, L3-4 left Herniated nucleus pulposus, L5-S1 History of cardioversion History of COVID-19 (~2020) Hyperlipidemia PAF (paroxysmal atrial fibrillation) Pre-diabetes Sleep apnea Spinal stenosis Physical Therapy Inpatient Evaluation/Re-Eval M1 PT/OT-IP Prior Functional Status Start: 12/10/23 16:48 Freq: NEEDED Status: Active Protocol: Document 12/10/23 14:33 AB (Rec: 12/10/23 17:05 AB [id number]) Medical Review Prior Functional Status Medical History Reviewed Yes Communication able to make needs known Mobility and Gait pt stated that he was indpenednetn with all mobilities and ambulation without AD; pt able to drive prior to sx Activities of Daily Living and IADL's per OT note: Pt states able to do all ADL and IADl needs , and just mowed his yard prior to this surgery. Social History Household Members none Living Arrangements House Number of Floors (Floors) One Floor Number of Stairs To Enter/Railing? has 2 steps to enter the house with no rail on the first step but has bilateral rails but far apart starting from the 2nd step and pt usually uses the R rail to assist him. pt stated that the first step is ~ 8 inches deep and he can easily reach for the rail on the 2nd step. Home Environment Standard Height Toilet,Walk in Shower,Tub/Shower Home Equipment Four Wheel Walker,Straight Cane,Hand Held Shower,Nib Adjuster Employment Status Retired Additional Social History Comment Pt states has no one to assist him and just latter-day friend to help drive him as needed. M2 PT-IP Current Condition Start: 12/10/23 16:48 Freq: NEEDED Status: Active Protocol: Document 12/10/23 14:33 AB (Rec: 12/10/23 17:05 AB [id number]) Physical Therapy Current Condition Current Condition Evaluation Date 12/10/23 Treatment Diagnosis s/p L4-5 TLIF; difficulty in walking Onset Date 12/10/23 M3 PT-IP Subjective Start: 12/10/23 16:48 Freq: NEEDED Status: Active Protocol: Document 12/10/23 14:33 AB (Rec: 12/10/23 17:05 AB [id number]) Subjective Physical Therapy Visit Type Type Initial Evaluation Visit Start Time 14:33 Visit Stop Time 15:10 Number of FURNISHINGS CONSERVATOR Visits 0 Physical Therapy Visit Comments Patient Comments agreeable to do PT Therapy Pain Assessment Pain When Pain Assessed At Rest Pain Present Pain Present Pain Reported Location back Intensity 6 Scale Used Numeric (0 - 10) Pain Management Techniques Apply Cold,Distraction, Elevation,Modification of Treatment,Re-positioning, Timing of Activity with Medications M4 PT-IP Mobility and Gait Start: 12/10/23 16:48 Freq: NEEDED Status: Active Protocol: Document 12/10/23 14:33 AB (Rec: 12/10/23 17:05 AB [id number]) PT-Bed Mobility Assessment Rolling Level of Assist Standby Assistance Supine to Sit Supine to Sit Standby Assistance PT-Transfer Assessment Sit to and From Stand Sit to and from Stand Contact Guard Assistance,1 Person Assistance,Use of Upper Extremities Equipment Transfer Assistive Device Gait Belt,Front Wheeled Walker Orthotic/Prosthetic Devices or Brace: No Transfers Transfer Destination Chair Transfer Technique ambulated Transfer Ability Level of Assist Contact Guard Assistance,1 Person Assistance,Use of Upper Extremities Comments Mobility Comments pt supine in bed and agreeable to do PT. obtained PLOF and home set up from pt. educated pt regarding back precautions and log roll bed mobility. pt with memory issues and needs cues to recall back precautions. BP in supine: 117/68. pt completed log roll bed mobility supine to sit SBA but with max cues for techniques. pt able to sit on EOB SBA. c/o initial lightheadedness. BP checked: 105/63. pt sat on EOB for ~ 2-3 minutes and BP checked again: 119/72. pt completed sit to stand CGA and ambulated in room using FWW ~ 20 ft CGA. pt sat on the chair and c/o lightheadedness again. BP checked: 105/60. pt presents with shuffling gait with wide based gait positioned pt on the chair. BP checked again after a few minutes of restin/66. call light and table placed within reach. provided ice packs. Gait Assessment Gait Gait Assistance Required: Contact Guard Assist Distance (Feet) 20 Able to Maintain Weight Bearing Status Yes During Gait Assistive Devices Assistive Device Gait Belt,Front Wheeled Walker Orthotic/Prosthetic Devices or Brace: No Gait Deviations General Gait Pattern Decreased Stride Length, Decreased Feet Clearance,Step- to Gait,Wide Based Gait Factors Limiting Gait Function Factors Limiting Gait Function Decreased Activity Tolerance, Decreased Strength,Difficulty Following Directions,Limited Range of Motion,Pain,Poor Balance,Poor Safety Awareness PT-Balance Assessment Sitting Balance and Reactions Static Sitting Balance Ability Good Dynamic Sitting Balance Ability Good Standing Balance and Reactions Static Standing Balance Ability Fair Dynamic Standing Balance Ability Fair Device Used FWW M5 PT-IP Objective Assessments Start: 12/10/23 16:48 Freq: NEEDED Status: Active Protocol: Document 12/10/23 14:33 AB (Rec: 12/10/23 17:05 [id number]) Orientation Orientation/Cognition Level of Alertness Alert Orientation Name,Place,Situation Safety Awareness Decreased Safety Awareness Memory Description Short Term Impaired Gross Range of Motion Lower Extremity ROM Assessment Within Functional Limits Strength Lower Extremity Strength Assessment Within Functional Limits Coordination Assessment Gross Coordination Gross Coordination WNL Sensation Assessment Sensation Gross Sensation WNL Muscle Tone Muscle Tone WNL Yes M6 PT-IP Treatment Start: 12/10/23 16:48 Freq: NEEDED Status: Active Protocol: Document 12/10/23 14:33 AB (Rec: 12/10/23 17:05 AB [id number]) Physical Therapy Treatment Education Education Provided Precautions,Weight Bearing Status,Post-Op Packet,Safety M7 PT-IP Assessment and Plan Start: 12/10/23 16:48 Freq: NEEDED Status: Active Protocol: Document 12/10/23 14:33 AB (Rec: 12/10/23 17:05 [id number]) PT Summary Assessment and Plan Potential Rehabilitation Potential Fair Status of Condition at Evaluation Evolving Summary Impairments Pain,ROM,Strength,Balance, Coordination,Sensation,Tone, Cognition,Bed Mobility, Transfers,Gait,Activity Tolerance Assessment Summary pt is a 73 y/o M w/p L4-5 TLIF POD 0. pt requiring CGA with mobility using FWW but unable to tolerate much activity with c/o lightheadedness. pt just had surgery today and will likely progress in mobility during hospital stay. pt lives alone and stated that he has friends he can ask for assistance if needed but he plans to be independent upon d /c. will continue to assess progress. pt has to complete stair climbing prior to d/c as pt has 2 steps to get into his house. Goals Bed Mobility Goal Independent Transfer Goal Independent,Front Wheeled Walker,Four Wheeled Walker Gait Goal Independent,Front Wheel Walker ,Four Wheel Walker Gait Distance 200 Other Goals up/down 2 steps R rail ascending + SPC SBA Days to Meet Goals 5 Frequency of Treatment Frequency Of Treatment Twice a Day Treatment Plan Physical Therapy Treatment Plan Bed Mobility Training,Transfer Training,Gait Training, Therapeutic Exercise,Balance Retraining,Post Op Education, Discharge Planning,Hot or Cold Pack,Neuromuscular Re-ed, Coordination Retraining,Manual Therapy Precautions Lumbar Precautions Log Roll,No Twisting,Limit Bending,Lifting Restriction of 10 lbs,Gait Belt above Incisional Area Recommendations To Nursing Amount of Assist Needed 1 Person Assist Discharge Recommendations PT Discharge Recommendations Home with Assistance,Home Health Equipment Needed for Home Before FWW if not safe with 4WW Discharge Transportation Needs at Discharge Private Vehicle
[2023-12-10] MEDS: ACETAMINOPHEN 325 MG TABLET 650 MG PO (15:10)
--- NOTE | 2023-12-10 15:27 | OT.IP.EVAL ---
Current Diagnoses Spinal stenosis, lumbar region without neurogenic claudication (12/10/23) Spinal stenosis, lumbar region with neurogenic claudication (12/10/23) Surgery Performed Operation Date: 12/10/23 10:15 Actual Procedures p L4-5 TRANSFORAMINAL LUMBAR INTERBODY FUSION - Rachel Steele MD Past Medical History (Last Updated 12/03/23 @ 15:03 by Diana Todd, RN) Atrial fibrillation Waters's esophagus BCC (basal cell carcinoma) Depression Facet arthropathy, lumbar Herniated nucleus pulposus, L3-4 left Herniated nucleus pulposus, L5-S1 History of cardioversion History of COVID-19 (~2020) Hyperlipidemia PAF (paroxysmal atrial fibrillation) Pre-diabetes Sleep apnea Spinal stenosis Surgical History (Last Updated 12/03/23 @ 14:20 by Diana Todd RN) H/O hand surgery H/O vasectomy History of nasal surgery Hx of left inguinal hernia repair Hx of right inguinal hernia repair Hx of tonsillectomy Occupational Therapy Inpatient Evaluation/Re-Eval M1 PT/OT-IP Prior Functional Status Start: 12/10/23 16:29 Freq: NEEDED Status: Active Protocol: Document 12/10/23 16:29 [facility] (Rec: 12/10/23 16:48 [facility] [id number]) Medical Review Prior Functional Status Communication Independent. Mobility and Gait Pt states able to walk 80ft before needing to stop due to having pain but did not use a device. Activities of Daily Living and IADL's Pt states able to do all ADL and IADl needs , and just mowed his yard prior to this surgery. Social History Household Members none Living Arrangements House Number of Stairs To Enter/Railing? 2 steps with wide decking rails on the 2nd second step. Home Environment Standard Height Toilet,Walk in Shower,Tub/Shower Home Equipment Four Wheel Walker,Hand Held Shower,Medical Staff Assistant Additional Social History Comment Pt states has no one to assist him and just a sabianism friend to help drive him as needed. M2 OT-IP Current Condition Start: 12/10/23 16:29 Freq: Status: Active Protocol: Document 12/10/23 16:29 [facility] (Rec: 12/10/23 16:48 [facility] [id number]) Occupational Therapy Current Condition Current Condition Evaluation Date 12/10/23 Treatment Diagnosis S/P L4-5 TLIF Diagnosis Onset Date 12/10/23 Post Operative Precautions Lumbar Precautions Log Roll,No Twisting,Limit Bending,Lifting Restriction of 10 lbs,Gait Belt above Incisional Area M3 OT- IP Subjective and Pain Start: 12/10/23 16:29 Freq: Status: Active Protocol: Document 12/10/23 16:29 [facility] (Rec: 12/10/23 16:48 [facility] [id number]) OT- Subjective Occupational Therapy Visit Type Type Initial Evaluation Visit Start Time 14:40 Visit Stop Time 15:27 Occupational Therapy Visit Comments Patient Comments Pt agreed to get up. Patient/Caregiver Goals TO go home. OT Pain Assessment Pain When Pain Assessed During Mobility Pain Present Pain Present Pain Reported Location back Intensity 5 Scale Used Numeric (0 - 10) M4 OT- IP ADL's Start: 12/10/23 16:29 Freq: Status: Active Protocol: Document 12/10/23 16:29 [facility] (Rec: 12/10/23 16:48 [facility] [id number]) OT [id number] Comments OT Self-Feeding Comments Pt has not eaten since last night but not wanting to eat anything when asked. OT ADL-Grooming Comments OT Grooming Comments Not performed. OT ADL-Oral Care Comments Oral Care Comments Educated pt best to spit into a cup or hinge at his hips when doing oral care needs. OT ADL-Dressing General Eval Lower Body Dressing Ability Maximum Assistance Areas Needing Assistance Socks Comments OT Dressing Comments Able to practice and issue pt LB dressing equipment for needs. OT ADL-Toileting Comments OT Toileting Comments Able to simulate reaching in back to wipe and pt able to do so while following his back precautions. Pt would benefit from wet one for increased ease. Pt states only gets up one time at night. OT ADL-Bathing Comments OT Bathing Comments Pt will benefit from a shower chair and assist especially to help cover and look at his back dressing. Pt states is on his own. Suggested pt get a mirror so able to reflect off the bathroom mirror to see his back. Pt states to just sponge off for now. M5 OT- IP IADL's Start: 12/10/23 16:29 Freq: Status: Active Protocol: Document 12/10/23 16:29 [facility] (Rec: 12/10/23 16:48 [facility] [id number]) OT-Instrumental Activities of Daily Living Deficits IADL Deficits Identified Deficits Home Safety Awareness Awareness of Need for Assistance at Home Decreased Awareness Home Safety Comments Pt is a bit groggy and insistent that he will be able to care fore himself. Medication Management Medication Management Comments Pt insists he will be able to do it, at this time, pt is a little groggy and would benefit from supervision especially for bathing and IADL needs. Driving Driving Comments Pt insists that he will be fine to drive to his follow up appointment in two weeks. Strongly recommended pt get a ride to his appointment and get clearance from the surgeon first before driving again. M6 OT- IP Functional Cognition Start: 12/10/23 16:29 Freq: Status: Active Protocol: Document 12/10/23 16:29 [facility] (Rec: 12/10/23 16:48 [facility] [id number]) Cognitive Factors Limiting Selfcare Function Cognitive Ability Level of Alertness Alert,Drowsy Patient Orientation Name,Age,Birthday,Month,Date, Year,Day of Week,Place, Situation Attention Span Ability Capable of Focused Attention, Capable of Sustained Attention Ability to Follow Commands Able to Follow One Step Commands with Increased Time, Able to Follow One Step Commands with Repetition Memory Description Short Term Impaired Safety Awareness Decreased Recall of Precautions,Decreased Ability to Apply Precautions, Underestimates Need for Assistance Cognitive Comments Cognitive Assessment Comments Pt still a bit groggy from just having surgery this morning. Pt not able to recall his back precautions and needing cues to incorporate techniques for all ADl and mobility needs. OT- Vision and Hearing OT- Hearing Assessment OT- Hearing Assessment WFL OT- Vision Assessment Visual Acuity WFL Visual Attentiveness WFL Occular Pursuits WFL M7 OT- IP Mobility and Balance Start: 12/10/23 16:29 Freq: Status: Active Protocol: Document 12/10/23 16:29 [facility] (Rec: 12/10/23 16:48 [facility] [id number]) OT- Bed Mobility Assessment Supine to Sit Supine to Sit Assist Standby Assistance OT-Transfer Assessment Sit to and From Stand Sit to and from Stand Standby Assistance Transfers Transfer Ability Standby Assistance Technique Transfer Destination Bed,Chair Transfer Technique Stand Step Pivot Devices Transfer Assistive Devices Gait Belt,Front Wheeled Walker Comments Mobility Comments SBA with FWW and MOD vc for safety and techniques to follow his back precautions. Pt after cues able to push up from the armrest of the chair or hands on his knee to help come to stand. OT- Balance Assessment Sitting Balance and Reactions Static Sitting Balance Ability Normal Dynamic Sitting Balance Ability Good Standing Balance and Reactions Static Standing Balance Ability Good Dynamic Standing Balance Ability Good M8 OT- IP Objective Assessments Start: 12/10/23 16:29 Freq: Status: Active Protocol: Document 12/10/23 16:29 [facility] (Rec: 12/10/23 16:48 [facility] [id number]) OT Gross Range of Motion Upper Extremity Range of Motion Assessment Within Functional Limits OT Strength Upper Extremity Strength Assessment Within Functional Limits M9 OT- IP Assessment and Plan Start: 12/10/23 16:29 Freq: Status: Active Protocol: Document 12/10/23 16:29 [facility] (Rec: 12/10/23 16:48 [facility] [id number]) OT Summary Assessment and Plan Potential Rehabilitation Potential Excellent Analytic Complexity at Evaluation Low Summary OT Impairments Pain,Strength,Balance, Functional Mobility,Grooming, Dressing,Toileting,Bathing, Toilet Transfers,Shower Transfers,Activity Tolerance Progress Towards Goals Progressing Toward Goals Assessment Summary Pt low complexity and main barriers arr pain, still groggy from surgery and needing MOD vc for safety and how to incorporate his back precautions for ADl and mobility needs. Hopefully pt will be much clearer mentally tomorrow. To re-review all back precaution needs. Pt looking to go home tomorrow. Pt would benefit from assist. Goals Grooming Goal Independent Dressing Goal Independent,Long Handled Shoe Horn,Medical Staff Assistant,Sock Aid Toileting Goal Independent Bathing Goal Standby Assistance Toilet Transfer Goal Independent Shower Transfer Goal Independent Days to Meet Goals 3 Frequency of Treatment Frequency Of Treatment Once a Day Treatment Plan OT Treatment Plan ADL Training,Functional Mobility,Patient/Family Education,Discharge Planning Discharge Recommendations OT Discharge Recommendations Home with Assistance Home Equipment Needs shower chair Transportation Needs at Discharge Private Vehicle
[2023-12-10] MEDS: OXYCODONE IR 5 MG TABLET PO ×2 (15:56→21:08)
[2023-12-10] MEDS: ATORVASTATIN 20 MG TABLET PO (21:02)
[2023-12-10] MEDS: DOCUSATE 100 MG CAPSULE PO (21:02)
[2023-12-10] MEDS: SENNOSIDES 8.6 MG TABLET 17.2 MG PO (21:02)
[2023-12-10] MEDS: TRAZODONE 50 MG TABLET PO (21:03)
[2023-12-11] MEDS: CEFAZOLIN 2 GM/100 ML PREMIX 100 ML IV (02:35)
[2023-12-11] MEDS: OXYCODONE IR 5 MG TABLET PO (02:39)
[2023-12-11] MEDS: ACETAMINOPHEN 325 MG TABLET 650 MG PO (02:40)
[2023-12-11 06:00] VITALS: BP 123/65; PULSE 80; RESP 14; TEMP 35.7; O2SAT 97
[2023-12-11] MEDS: PANTOPRAZOLE DR 40 MG TABLET PO (06:21)
--- NOTE | 2023-12-11 07:09 | PM.DS.1 ---
History of Present Illness History of Present Illness Date Patient Seen: 12/11/23 Time Patient Seen: 07:09 Chief complaint: INPT Narrative: Operative Date/Time/Diagnoses Date of procedure: 12/10/23 Time of procedure: 10:30 Pre-op diagnosis: 1. L4-5 spinal stenosis with neurogenic claudication 2. L4-5 central disc herniation with bilateral lateral recess stenosis Post-op diagnosis: same Procedure & Clinicians Procedure: 1. L4-5 Postero-lateral and posterior interbody fusion 2. L4-5 interbody cage placement. 3. L4-5 decompressive laminectomy with bilateral facetecomies 4. L4-5 Posterior non-segmental instrumentation 5. [place] of bone marrow from iliac crest 6. Utilization of microsurgical technique and operating microscope Same procedure as scheduled: Yes Indications: Patient has been having chronic back pain and worsening lumbar radiculopathy and symptoms of neurogenic claudication. Patient has MRI showing large L4-5 central disc herniation with severe central and bilateral recess stenosis correlating with his symptoms. Patient failed multiple conservative management with worsening pain weakness and numbness in his lower extremity. Patient has been having difficulty performing activity of daily living. After discussing risks benefits of treatment options, patient elected proceed with surgery. Surgeon: Rachel Steele Grocery Sacker: Chaya Collins Click Yes if Unassisted: No Anesthesia Type: General Operative Notes Closure Type: primary Specimen(s): none sent Prosthetic devices, grafts, tissues, transplants, or devices: Globus revolve screws, Rise cage Estimated Blood Loss (mL): 50 Blood products transfused: none Discharge Providers Provider Date of admission: 12/10/23 08:28 Discharge Date: 12/11/23 Primary care physician: Solitario Nazario MD Consults: 12/10/23 13:52 Consult to Occupational Therapy Evaluate & Treat Comment: Physician Instructions: Evaluate and treat Consult to Physical Therapy Evaluate & Treat Comment: Physician Instructions: Evaluate and Treat Discharge provider: Chaya Collins PA-C Summary Hospital Course Discharge Diagnosis: L4-5 spinal stenosis with neurogenic claudication, L4-5 central disc herniation with bilateral lateral recess stenosis ; s/p L4-5 TLIF Hospital Course: Mr Alamo's hospital course was unremarkable. On the morning of POD# 1, he was feeling well and wanted to go home. He was eating and voiding without difficulty and his pain was well-controlled with oral medication. He was evaluated by PT, who felt he was safe for discharge home. He was up on his own several times without difficulty. Exam Vital Signs (past 8 hours): - 12/11/23 06:00 Temperature 96.3 F L Pulse Rate 80 Respiratory Rate 14 Blood Pressure 123/65 Pulse Oximetry 97 Oxygen Flow Rate 0 Oxygen Delivery Method Room Air Oxygen Flow Rate 0 Narrative Exam Narrative: 5/5 strength in hip flexors, quadriceps, hamstrings, DF, PF, EHL bilaterally. Sensation to light touch intact throughout BLE, calves soft and compressible. Dressing placed intraoperatively is CDI. [facility] Medical History (Updated 12/03/23 @ 15:03 by Diana Todd RN) History of COVID-19 (~2020) Depression BCC (basal cell carcinoma) Spinal stenosis Pre-diabetes Sleep apnea Waters's esophagus PAF (paroxysmal atrial fibrillation) History of cardioversion Herniated nucleus pulposus, L3-4 left Facet arthropathy, lumbar Herniated nucleus pulposus, L5-S1 Hyperlipidemia Atrial fibrillation Surgical History (Updated 12/03/23 @ 14:20 by Diana Todd RN) Hx of tonsillectomy H/O vasectomy Hx of right inguinal hernia repair Hx of left inguinal hernia repair History of nasal surgery H/O hand surgery Social History household members: none Smoking Status: Former smoker alcohol intake: current Discharge Assessment & Plan Assessment and Plan Assessment: L4-5 spinal stenosis with neurogenic claudication, L4-5 central disc herniation with bilateral lateral recess stenosis ; s/p L4-5 TLIF Plan of Treatment: Discharge home, multimodal pain control, f/u in office in 2 weeks as scheduled. Discharge Plan Discharge Plan Patient Disposition: Home Provider Discharge Comment: Oxycodone and Vistaril sent to [facility] from office. Discharge orders & Medications Prescriptions: Continued isosorbide mononitrate 30 mg Tablet Extended Release 24 Hr 30 mg PO QAM omeprazole 40 mg Capsule,Delayed Release(Dr/Ec) 40 mg PO DAILY albuterol sulfate 90 mcg/actuation Hfa Aerosol Inhaler 2 puff INHALATION Q4-6H PRN (Reason: Shortness Of Breath) aspirin 81 mg Capsule 81 mg PO DAILY rosuvastatin 10 mg tablet 10 mg PO DAILY trazodone 50 mg tablet 50 mg PO BEDTIME fluoxetine 20 mg capsule 40 mg PO DAILY metoprolol succinate 25 mg tablet extended release 24 hr 25 mg PO DAILY Follow up/Referrals: Solitario Nazario MD [Primary Care Provider] - Rachel Steele MD [Physician] - 12/24/23 2:20 pm (Follow up w/ Bill Salvador PA-C, at [facility] in [place].) Diet/Activity/Treatments Diet: Diet as Tolerated Activity: No deep bending or twisting at the waist. No lifting more than 10 pounds. Cold/Heat Therapy: Heating pad to low back as needed for pain. Skin/Wound/Dressing Care Report to your healthcare provider any signs of infection, such as:: chills, fever, night sweats, unusual drainage and unusual redness Dressing: May shower. Keep dressing as dry as possible. If dressing becomes wet or dirty, may remove and replace with clean, dry gauze. No bathing or otherwise soaking incisions. Do not apply any creams, lotions, or ointments to incisions. Visit Report/Discharge Packet Instructions: DI for Heart Failure, DI for Transforaminal Lumbar Interbody Fusion Stand Alone Forms: Patient Portal/API, Stroke Signs & Symptoms, Surgery Discharge Discharge Data Primary Care Provider: Solitario Nazario Quality VTE Deep Vein Thrombosis/Pulmonary Embolism Present on Admission: No
[2023-12-11] MEDS: ISOSORBIDE MONONITRATE ER 30 MG TABLET PO (08:08)
[2023-12-11] MEDS: METOPROLOL ER 25 MG TABLET PO (08:08)
[2023-12-11] MEDS: DOCUSATE 100 MG CAPSULE PO (08:08)
[2023-12-11] MEDS: FLUoxetine 20 MG CAPSULE 40 MG PO (08:09)
[2023-12-11 08:38] VITALS: BP 120/55; PULSE 75
--- NOTE | 2023-12-11 09:12 | OT.IP.TRT ---
Current Diagnoses Spinal stenosis, lumbar region without neurogenic claudication (12/10/23) Spinal stenosis, lumbar region with neurogenic claudication (12/10/23) Surgery Performed Operation Date: 12/10/23 10:15 Actual Procedures p L4-5 TRANSFORAMINAL LUMBAR INTERBODY FUSION - Rachel Steele MD Occupational Therapy Treatment Note M2 OT-IP Current Condition Start: 12/10/23 16:29 Freq: Status: Active Protocol: Document 12/10/23 16:29 [facility] (Rec: 12/10/23 16:48 [facility] [id number]) Occupational Therapy Current Condition Current Condition Evaluation Date 12/10/23 Treatment Diagnosis S/P L4-5 TLIF Diagnosis Onset Date 12/10/23 Post Operative Precautions Lumbar Precautions Log Roll,No Twisting,Limit Bending,Lifting Restriction of 10 lbs,Gait Belt above Incisional Area M3 OT- IP Subjective and Pain Start: 12/10/23 16:29 Freq: Status: Active Protocol: Document 12/11/23 09:13 [facility] (Rec: 12/11/23 09:25 [facility] [id number]) OT- Subjective Occupational Therapy Visit Type Type Treatment Note Visit Start Time 08:48 Visit Stop Time 09:12 Occupational Therapy Visit Comments Patient Comments Pt wanting to get dressed. Patient/Caregiver Goals TO go home. OT Pain Assessment Pain When Pain Assessed During Mobility Pain Present Pain Present Pain Reported M4 OT- IP ADL's Start: 12/10/23 16:29 Freq: Status: Active Protocol: Document 12/11/23 09:13 [facility] (Rec: 12/11/23 09:25 [facility] [id number]) OT [id number] General Evaluation Self-Feeding Ability Independent OT ADL-Grooming Comments OT Grooming Comments Not performed. OT ADL-Oral Care Comments Oral Care Comments Not performed. OT ADL-Dressing General Eval Upper Body Dressing Ability Independent Lower Body Dressing Ability Minimal Assistance Comments OT Dressing Comments Able to practice LB dressing equipment. Pt's socks too thick therefore needing assist to help block his foot so able to slip on his slippers. Best to wear thinner socks or no socks at this time with his slippers as his feet as a little swollen. OT ADL-Toileting Comments OT Toileting Comments Pt states able to wipe after a small bowel movement yesterday. Wet one will be helpful for completeness. Suggested that pt take a urinal home to use. OT ADL-Bathing Comments OT Bathing Comments Pt states the PA states okay for the dressing to get wet but to wipe off any water. Asked the nurse to change out his dressing to more water resistant one as pt is on his own and has no assist at home to help to cover his dressing. M5 OT- IP IADL's Start: 12/10/23 16:29 Freq: Status: Active Protocol: Document 12/10/23 16:29 [facility] (Rec: 12/10/23 16:48 [facility] [id number]) OT-Instrumental Activities of Daily Living Deficits IADL Deficits Identified Deficits Home Safety Awareness Awareness of Need for Assistance at Home Decreased Awareness Home Safety Comments Pt is a bit groggy and insistent that he will be able to care fore himself. Medication Management Medication Management Comments Pt insists he will be able to do it, at this time, pt is a little groggy and would benefit from supervision especially for bathing and IADL needs. Driving Driving Comments Pt insists that he will be fine to drive to his follow up appointment in two weeks. Strongly recommended pt get a ride to his appointment and get clearance from the surgeon first before driving again. M6 OT- IP Functional Cognition Start: 12/10/23 16:29 Freq: Status: Active Protocol: Document 12/11/23 09:13 [facility] (Rec: 12/11/23 09:25 [facility] [id number]) Cognitive Factors Limiting Selfcare Function Cognitive Ability Level of Alertness Alert Patient Orientation Name,Age,Birthday,Month,Date, Year,Day of Week,Place, Situation Attention Span Ability Capable of Focused Attention, Capable of Sustained Attention Ability to Follow Commands Able to Follow One Step Commands Safety Awareness Decreased Ability to Apply Precautions Cognitive Comments Cognitive Assessment Comments Pt at times tends to twist and needing clues not to twist too much. VC to push up from surface sitting on or his knee when coming to stand. VC to lock the brakes on 4ww before coming to sit and before standing. M7 OT- IP Mobility and Balance Start: 12/10/23 16:29 Freq: Status: Active Protocol: Document 12/11/23 09:13 [facility] (Rec: 12/11/23 09:25 [facility] [id number]) OT- Bed Mobility Assessment Supine to Sit Supine to Sit Assist Standby Assistance Sit to Supine Sit to Supine Assist Standby Assistance OT-Transfer Assessment Sit to and From Stand Sit to and from Stand Standby Assistance Transfers Transfer Ability Standby Assistance Technique Transfer Destination Bed Transfer Technique Stand Step Pivot Devices Transfer Assistive Devices Gait Belt,Front Wheeled Walker Comments Mobility Comments At this time best for pt to sleep in the recliner initially as pt tends to twist during bed mobility needs. Pt able to use the 4ww and also educated how to tip it in his car if having to go to an appointment. Pt states able to ask the PA regarding driving today. Still suggest to get someone to take him to appointments in the next two weeks. OT- Balance Assessment Sitting Balance and Reactions Static Sitting Balance Ability Normal Dynamic Sitting Balance Ability Good Standing Balance and Reactions Static Standing Balance Ability Good Dynamic Standing Balance Ability Good M8 OT- IP Objective Assessments Start: 12/10/23 16:29 Freq: Status: Active Protocol: Document 12/10/23 16:29 [facility] (Rec: 12/10/23 16:48 [facility] [id number]) OT Gross Range of Motion Upper Extremity Range of Motion Assessment Within Functional Limits OT Strength Upper Extremity Strength Assessment Within Functional Limits M9 OT- IP Assessment and Plan Start: 12/10/23 16:29 Freq: Status: Active Protocol: Document 12/11/23 09:13 [facility] (Rec: 12/11/23 09:25 [facility] [id number]) OT Summary Assessment and Plan Potential Rehabilitation Potential Excellent Analytic Complexity at Evaluation Low Summary OT Impairments Pain,Strength,Balance, Functional Mobility,Grooming, Dressing,Toileting,Bathing, Toilet Transfers,Shower Transfers,Activity Tolerance Progress Towards Goals Progressing Toward Goals Assessment Summary Pt not as groggy today and doing a bit better to follow his back precautions for ADl and mobility needs. Pt still needing vc for FWW safety and log rolling. Pt able to practice and use LB dressing equipment to get dressed today . Pt to go home and states can get assist if really needed. Goals Grooming Goal Independent Dressing Goal Independent,Long Handled Shoe Horn,Scrub Woman,Sock Aid Toileting Goal Independent Bathing Goal Independent Toilet Transfer Goal Independent Shower Transfer Goal Independent Days to Meet Goals 2 Frequency of Treatment Frequency Of Treatment Once a Day Treatment Plan OT Treatment Plan ADL Training,Functional Mobility,Patient/Family Education,Discharge Planning Discharge Recommendations OT Discharge Recommendations Home with Assistance Home Equipment Needs shower chair Transportation Needs at Discharge Private Vehicle
--- NOTE | 2023-12-11 09:54 | PT.IPTN ---
Current Diagnoses Spinal stenosis, lumbar region without neurogenic claudication (12/10/23) Spinal stenosis, lumbar region with neurogenic claudication (12/10/23) Surgery Performed Operation Date: 12/10/23 10:15 Actual Procedures p L4-5 TRANSFORAMINAL LUMBAR INTERBODY FUSION - Rachel Steele MD Physical Therapy Treatment Note M2 PT-IP Current Condition Start: 12/10/23 16:48 Freq: NEEDED Status: Active Protocol: Document 12/10/23 14:33 AB (Rec: 12/10/23 17:05 AB [id number]) Physical Therapy Current Condition Current Condition Evaluation Date 12/10/23 Treatment Diagnosis s/p L4-5 TLIF; difficulty in walking Onset Date 12/10/23 M3 PT-IP Subjective Start: 12/10/23 16:48 Freq: NEEDED Status: Active Protocol: Document 12/11/23 10:09 TS (Rec: 12/11/23 10:26 TS [id number]) Subjective Physical Therapy Visit Type Type Treatment Note Visit Start Time 09:54 Visit Stop Time 10:09 Number of [employer]YST[employer] Visits 1 Physical Therapy Visit Comments Patient Comments Pt reports pain is 3/10, is agreeable to PT. Therapy Pain Assessment Pain When Pain Assessed During Mobility Pain Present Pain Present Pain Reported M4 PT-IP Mobility and Gait Start: 12/10/23 16:48 Freq: NEEDED Status: Active Protocol: Document 12/11/23 10:09 TS (Rec: 12/11/23 10:26 TS [id number]) PT-Bed Mobility Assessment Supine to Sit Supine to Sit Standby Assistance Sit to Supine Sit to Supine Standby Assistance Scooting Scooting to Edge of Bed Standby Assistance PT-Transfer Assessment Sit to and From Stand Sit to and from Stand Standby Assistance Equipment Transfer Assistive Device Gait Belt,Front Wheeled Walker Orthotic/Prosthetic Devices or Brace: No Comments Mobility Comments STS from bed SBA with use of FWW. Pt was educated on donning of gait belt for friend who will be assisting pt at home. He ambulated ~100' in hallway with FWW, had no buckling or LOB. He performed steps x2 with single rail SBA. Pt recalled 3/3 spinal precautions. Pt was left back in bed, all needs met, RN notified. Gait Assessment Gait Gait Assistance Required: Contact Guard Assist Distance (Feet) 100 Able to Maintain Weight Bearing Status Yes During Gait Assistive Devices Assistive Device Gait Belt,Front Wheeled Walker Orthotic/Prosthetic Devices or Brace: No Gait Deviations General Gait Pattern Decreased Stride Length, Decreased Feet Clearance,Step- to Gait,Wide Based Gait Factors Limiting Gait Function Factors Limiting Gait Function Decreased Activity Tolerance, Decreased Strength,Difficulty Following Directions,Limited Range of Motion,Pain,Poor Balance,Poor Safety Awareness Comments Gait Comments See mobility comments Stair Climbing Assessment Evaluation Level of Assist On Stairs Standby Assistance Devices Stair Climbing Assistive Devices Left Railing Technique/Endurance Stair Climbing Direction Ascend and Descend Stair Climbing Technique Step to Step Number of Steps Climbed 2 PT-Balance Assessment Sitting Balance and Reactions Static Sitting Balance Ability Normal Dynamic Sitting Balance Ability Good Standing Balance and Reactions Static Standing Balance Ability Good Dynamic Standing Balance Ability Good Device Used FWW M5 PT-IP Objective Assessments Start: 12/10/23 16:48 Freq: NEEDED Status: Active Protocol: Document 12/10/23 14:33 AB (Rec: 12/10/23 17:05 AB [id number]) Orientation Orientation/Cognition Level of Alertness Alert Orientation Name,Place,Situation Safety Awareness Decreased Safety Awareness Memory Description Short Term Impaired Gross Range of Motion Lower Extremity ROM Assessment Within Functional Limits Strength Lower Extremity Strength Assessment Within Functional Limits Coordination Assessment Gross Coordination Gross Coordination WNL Sensation Assessment Sensation Gross Sensation WNL Muscle Tone Muscle Tone WNL Yes M6 PT-IP Treatment Start: 12/10/23 16:48 Freq: NEEDED Status: Active Protocol: Document 12/11/23 10:09 TS (Rec: 12/11/23 10:26 TS [id number]) Physical Therapy Treatment Education Education Provided Precautions,Weight Bearing Status,Post-Op Packet,Safety M7 PT-IP Assessment and Plan Start: 12/10/23 16:48 Freq: NEEDED Status: Active Protocol: Document 12/11/23 10:09 TS (Rec: 12/11/23 10:26 TS [id number]) PT Summary Assessment and Plan Potential Rehabilitation Potential Good Summary Impairments Pain,ROM,Strength,Balance, Coordination,Sensation,Tone, Cognition,Bed Mobility, Transfers,Gait,Activity Tolerance Progress Towards Goals Progressing Toward Goals Assessment Summary Pt is progressing well with his mobility. He is SBA for all bed mobility and for STS with use of FWW. He progressed his gait to ~100'SBA with FWW . He performed stairs x2 SBA with use of single rail. Pt demonstrates good awareness of spinal precautions with mobility. PT is recommending home with assist. Goals Bed Mobility Goal Independent Transfer Goal Independent,Front Wheeled Walker,Four Wheeled Walker Gait Goal Independent,Front Wheel Walker ,Four Wheel Walker Gait Distance 200 Other Goals up/down 2 steps R rail ascending + SPC SBA Days to Meet Goals 5 Frequency of Treatment Frequency Of Treatment Twice a Day Treatment Plan Physical Therapy Treatment Plan Bed Mobility Training,Transfer Training,Gait Training, Therapeutic Exercise,Balance Retraining,Post Op Education, Discharge Planning,Hot or Cold Pack,Neuromuscular Re-ed, Coordination Retraining,Manual Therapy Precautions Lumbar Precautions Log Roll,No Twisting,Limit Bending,Lifting Restriction of 10 lbs,Gait Belt above Incisional Area Recommendations To Nursing Amount of Assist Needed 1 Person Assist Discharge Recommendations PT Discharge Recommendations Home with Assistance,Home Health Transportation Needs at Discharge Private Vehicle
--- NOTE | 2023-12-11 14:54 | CM.DANOTE ---
Discharge Planning/Care Management CM Discharge Assessment Start: 12/11/23 14:50 Freq: Status: Discharge Protocol: Document 12/11/23 14:51 JAKY (Rec: 12/11/23 14:53 JAKY [id number]) Discharge Planning Assessment Assigned Ring Sewer MICHELLE Almaguer DPOA/Assigned Designee Name ryan Romeo Contact Information [phone] or [phone] Advance Directives? No History Provided By Patient,Medical Record Prior Living Arrangements House Household Members none Type of transporation used prior to Drives own vehicle admit Independent with ADL's Yes Is patient alert and oriented? Yes Patient/Family Preference OP PT Therapy Barriers to Discharge No Comment Patient s/p TLIF. Patient had planned informal support from mosque members and friends once home. therapies cleared patient for this plan. No needs identified from this CM team, patient eager to return home, close outpatient follow up. Discharge Plan Home Transportation Arrangement Friends Referrals Initiated None needed
== END 2023-12-11 11:14 | disposition home or self-care (01) | DRG 455 ==
PROVIDERS: Admitting Provider Orthopaedic Surgery Orthopaedic Surgery of the Spine; PCP Family Medicine; Referring Provider Orthopaedic Surgery Orthopaedic Surgery of the Spine; Visit Provider Orthopaedic Surgery Orthopaedic Surgery of the Spine
PROC: 0SG00AJ Fusion of Lumbar Vertebral Joint with Interbody Fusion Device, Posterior Approach, Anterior Column, Open Approach (ICD-10-PCS; principal; 2023-12-10 10:15)
DX: M48.062 Spinal stenosis, lumbar region with neurogenic claudication (principal); M51.26 Other intervertebral disc displacement, lumbar region; M48.061 Spinal stenosis, lumbar region without neurogenic claudication; F32.A Depression, unspecified; E78.5 Hyperlipidemia, unspecified
CPT/HCPCS: 72100; 76000; 97162; 97165; 97530; 97535; C9290; J0171; J0330; J0690; J1100; J1170; J2250; J2310; J2405; J2704; J3010